=== PATIENT | female | born 1945 | race Caucasian/White ===

== ENCOUNTER → 2018-07-19 | Emergency (ER) | payer OTHER ==
[~2018-07-19] VITALS: Ht 152.4 cm; Wt 63.5 kg
[~2018-07-19] MED LIST: ATENOLOL50 MG; METFORMIN HCL500 MG; TOPROL XL50 M1
== END | disposition home or self-care (01) ==
LOC: ER 18:15
DX: G57.83 Other specified mononeuropathies of bilateral lower limbs (principal); G56.83 Other specified mononeuropathies of bilateral upper limbs; M62.81 Muscle weakness (generalized); R53.1 Weakness

== ENCOUNTER 2018-07-22 14:08 | Emergency (ER) | payer OTHER ==
[~2018-07-22] VITALS: Ht 152.4 cm; Wt 63.5 kg
== END 2018-07-22 18:24 | disposition home or self-care (01) ==
LOC: ER 14:08
DX: R20.0 Anesthesia of skin (principal); E86.0 Dehydration

== ENCOUNTER 2021-04-05 11:22 | Emergency (ER) | payer OTHER ==
[~2021-04-05] VITALS: Ht 154.9 cm; Wt 61.2 kg
== END 2021-04-05 17:02 | disposition home or self-care (01) ==
LOC: ER 11:22
DX: S30.0XXA Contusion of lower back and pelvis, initial encounter (principal); W18.39XA Other fall on same level, initial encounter; Y93.89 Activity, other specified; Y92.098 Other place in other non-institutional residence as the place of occurrence of the external cause; Y99.8 Other external cause status